=== PATIENT | male | born 1980 | race Caucasian/White ===

== ENCOUNTER 2022-06-02 12:34 | Outpatient (CLI) | payer OTHER, SELFPAY ==
--- NOTE | 2022-06-02 14:00 | CRLHL7_ITS ---
For Patients: As a result of the Cures Act, medical imaging exams and procedure reports are released immediately into your electronic medical record. You may view this report before your referring provider. If you have questions, please contact your health care provider. Indication: Left shoulder pain. Technique: Left shoulder 3 views. Comparison: None. Findings: Bones: Alignment is normal. No fractures or bone lesions. Joint spaces: Minimal narrowing and spurring at the acromioclavicular joints. Soft tissues: Unremarkable. Impression: Mild acromioclavicular degenerative arthrosis. Dictated by Shon Richardson MD @ 06/02/2022 3:10:46 PM (Electronically Signed)
--- NOTE | 2022-06-02 14:00 | CRLHL7_ITS ---
For Patients: As a result of the Cures Act, medical imaging exams and procedure reports are released immediately into your electronic medical record. You may view this report before your referring provider. If you have questions, please contact your health care provider. INDICATION: degen disc/joint disease, hypertension, ischemic heart disea TECHNIQUE: 3-view thoracic spine. COMPARISON: none FINDINGS: Mild S shaped curvature of the thoracic spine is present. Mild disc space narrowing and spurring at T8-9. Mild spurring also at T7-8 and T9-10. There is no evidence of a fracture or intrinsic bone lesion. The posterior ribs and paraspinal soft tissues appear normal. 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 Mild S shaped curvature. Dictated by Shon Richardson MD @ 06/02/2022 3:14:40 PM (Electronically Signed)
--- NOTE | 2022-06-02 14:00 | CRLHL7_ITS ---
For Patients: As a result of the Cures Act, medical imaging exams and procedure reports are released immediately into your electronic medical record. You may view this report before your referring provider. If you have questions, please contact your health care provider. Indication: Right shoulder pain. Technique: Right shoulder 3 views. Comparison: None. Findings: Bones: Alignment is normal. No fractures or bone lesions. Joint spaces: Mild narrowing and spurring at the acromioclavicular joint. The glenohumeral joint is normal. Soft tissues: Unremarkable. Impression: Mild degenerative arthrosis at the acromioclavicular joint. Dictated by Shon Richardson MD @ 06/02/2022 3:11:35 PM (Electronically Signed)
--- NOTE | 2022-06-02 14:00 | CRLHL7_ITS ---
For Patients: As a result of the Century Cures Act, medical imaging exams and procedure reports are released immediately into your electronic medical record. You may view this report before your referring provider. If you have questions, please contact your health care provider. INDICATION: degen disc/joint disease, hypertension, ischemic heart disea TECHNIQUE: 3-view lumbar spine. COMPARISON: none FINDINGS: The lumbar vertebrae are anatomically aligned. Mild anterior spurring at L4-5 and L5-S1 along with L3-4. Mild facet degeneration at L5-S1. There is no evidence of a fracture or intrinsic bone lesion. The SI joints appear normal. The paraspinal soft tissues appear normal. IMPRESSION: Minimal degenerative changes. Dictated by Shon Richardson MD @ 06/02/2022 3:12:54 PM (Electronically Signed)
--- NOTE | 2022-06-02 14:15 | CRLHL7_ITS ---
For Patients: As a result of the Century Cures Act, medical imaging exams and procedure reports are released immediately into your electronic medical record. You may view this report before your referring provider. If you have questions, please contact your health care provider. Indication: degen disc/joint disease, hypertension, ischemic heart disea Technique: Right ankle 2 views Comparison: None Findings: Small posterior calcaneal spur. No joint effusion. No fracture. Mortise is intact. Mild chronic changes to the tip of the medial malleolus. Impression: Small calcaneal spur and mild chronic changes to the medial malleolus. Dictated by Shon Richardson MD @ 06/02/2022 2:46:28 PM (Electronically Signed)
--- NOTE | 2022-06-02 14:15 | CRLHL7_ITS ---
For Patients: As a result of the Cures Act, medical imaging exams and procedure reports are released immediately into your electronic medical record. You may view this report before your referring provider. If you have questions, please contact your health care provider. Indication: degen disc/joint disease, hypertension, ischemic heart disea Technique: Pelvis and right hip 2 views Comparison: None Findings: Bones: Alignment is normal. No fractures or bone lesions. Joint spaces: Joint spaces are preserved. No degenerative changes. Soft tissues: Unremarkable. Impression: No significant arthrosis. No impingement deformity. Dictated by Shon Richardson MD @ 06/02/2022 3:01:17 PM (Electronically Signed)
--- NOTE | 2022-06-02 14:15 | CRLHL7_ITS ---
For Patients: As a result of the Century Cures Act, medical imaging exams and procedure reports are released immediately into your electronic medical record. You may view this report before your referring provider. If you have questions, please contact your health care provider. Indication: degen disc/joint disease, hypertension, ischemic heart disea Technique: One-view left hip Comparison: None Findings: Bones: Alignment is normal. No fractures or bone lesions. Joint spaces: Unremarkable. Soft tissues: Incidental vasectomy clips. Impression: No acute or significant findings. Dictated by Shon Richardson MD @ 06/02/2022 2:35:26 PM (Electronically Signed)
--- NOTE | 2022-06-02 14:15 | CRLHL7_ITS ---
For Patients: As a result of the Century Cures Act, medical imaging exams and procedure reports are released immediately into your electronic medical record. You may view this report before your referring provider. If you have questions, please contact your health care provider. Indication: Knee pain Technique: Left knee 3 views Comparison: None Findings: Bones: Alignment is normal. No fractures or bone lesions. Joint spaces: Minimal patellofemoral spurring. No joint effusion. Soft tissues: Unremarkable. Impression: Minimal patellofemoral arthrosis. Dictated by Shon Richardson MD @ 06/02/2022 3:07:01 PM (Electronically Signed)
--- NOTE | 2022-06-02 14:15 | CRLHL7_ITS ---
For Patients: As a result of the Century Cures Act, medical imaging exams and procedure reports are released immediately into your electronic medical record. You may view this report before your referring provider. If you have questions, please contact your health care provider. Indication: degen disc/joint disease, hypertension, ischemic heart disea Technique: Left knee 3 views Comparison: None Findings: Bones: Alignment is normal. No fractures or bone lesions. Joint spaces: Minimal patellofemoral spurring. Physiologic amount of joint fluid. Soft tissues: Unremarkable. Impression: Minimal patellofemoral arthrosis. Dictated by Shon Richardson MD @ 06/02/2022 3:06:14 PM (Electronically Signed)
--- NOTE | 2022-06-02 14:15 | CRLHL7_ITS ---
For Patients: As a result of the Century Cures Act, medical imaging exams and procedure reports are released immediately into your electronic medical record. You may view this report before your referring provider. If you have questions, please contact your health care provider. Indication: degen disc/joint disease, hypertension, ischemic heart disea Technique: Left ankle 2 views Comparison: None Findings: Small posterior calcaneal spur. Mild anterior spurring at the tibial plafond. Mortise intact. Small density adjacent to the medial malleolus. No acute fracture. No synovitis. Impression: Small posterior calcaneal spur and mild spurring at the anterior tibial plafond. Dictated by Shon Richardson MD @ 06/02/2022 3:03:56 PM (Electronically Signed)
== END 2022-06-02 12:35 | disposition home or self-care (01) ==
PROVIDERS: Visit Provider Chiropractor
DX: I25.9 Chronic ischemic heart disease, unspecified (principal); M77.31 Calcaneal spur, right foot; M77.32 Calcaneal spur, left foot; M17.11 Unilateral primary osteoarthritis, right knee; M17.12 Unilateral primary osteoarthritis, left knee; M19.011 Primary osteoarthritis, right shoulder; M19.012 Primary osteoarthritis, left shoulder; I10 Essential (primary) hypertension; M25.511 Pain in right shoulder; M51.36 Other intervertebral disc degeneration, lumbar region; M25.512 Pain in left shoulder; M51.34 Other intervertebral disc degeneration, thoracic region
CPT/HCPCS: 72070; 72100; 73030; 73501; 73562; 73600; 93306